=== PATIENT | male | born 1990 | race Caucasian/White ===

== ENCOUNTER 2018-09-12 20:21 | Emergency (ER) | payer SELFPAY ==
[2018-09-12 20:30] VITALS: BP 131/85
--- NOTE | 2018-09-12 21:11 | ED ---
Shortness of Breath - HPI Summary HPI Summary: 28 yo WM p/w left chest wall pain after stretching his muscles few days ago, but feels more of the pain when coughing, smokes 3-4 cigarettes per day. Gets SOB when walking 20 yards, denies trauma to chest - History of Current Complaint Chief Complaint: UCUpperExtremity Time Seen by Provider: 09/12/18 21:00 Hx Obtained From: Patient Onset/Duration: Sudden Onset, Still Present Current Severity: Moderate Aggravating Factors: Nothing Alleviating Factors: Nothing Associated Signs & Symptoms: Cough (Productive) - Allergy/Home Medications Allergies/Adverse Reactions: Allergies Allergy/AdvReac Type Severity Reaction Status Date / Time No Known Allergies Allergy Verified 09/12/18 20:30 Home Medications: Home Medications NK [No Home Medications Reported] 09/12/18 [History Confirmed 09/12/18] PMH/Surg Hx/FS Hx/Imm Hx Previously Healthy: No - pt is a smoker Infectious Disease History: No Infectious Disease History: Denies: Traveled Outside the [place] in Last 30 Days - Social History Alcohol Use: Rare Substance Use Type: Reports: None Smoking Status (MU): Current Every Day Smoker Type: Cigarettes Amount Used/How Often: 4-5 CIG/DAY Review of Systems Negative: Fever, Chills Eyes: Negative ENT: Negative Cardiovascular: Negative Positive: Shortness Of Breath, Cough Gastrointestinal: Negative Genitourinary: Negative Musculoskeletal: Negative Skin: Negative Neurological: Negative Psychological: Normal All Other Systems Reviewed And Are Negative: Yes Physical Exam - Summary Physical Exam Summary: Vital Signs Reviewed: Yes Eye Exam: Normal Eyes: Positive: Conjunctiva Clear ENT: Positive: Normal ENT inspection Neck: Positive: Supple Respiratory Exam: Normal Respiratory: Positive: decreased BS on left, NEG wheezing or rhonchi Cardiovascular Exam: Normal Cardiovascular: Positive: RRR Abdomen Description: Positive: Nontender Musculoskeletal Exam: Normal Neurological Exam: Normal Psychological Exam: Normal Skin Exam: Normal Vital Signs On Initial Exam: Initial Vitals Temp Pulse Resp BP Pulse Ox 37.2 C 98 16 131/85 98 09/12/18 20:26 09/12/18 20:26 09/12/18 20:26 09/12/18 20:26 09/12/18 20:26 Diagnostics - Vital Signs Vital Signs Temp Pulse Resp BP Pulse Ox 09/12/18 20:26 37.2 C 98 16 131/85 98 - Laboratory Lab Statement: Any lab studies that have been ordered have been reviewed, and results considered in the medical decision making process. Course/Dx - Course Assessment/Plan: CXR- PTX of left lung, appears to be spontaneous aspt has no risk factors for traumatic PTX, not marfanoid, no h/o emphysema or blebs evident on XR though he is a smoker. VSS stable, O2 sat 98% on RA, pt ambulates w/o becoming SOB. Advised to go to ED via ambulance but declined, signed AMA form as pt wanted to drive himself there as he has NO insurance. ER informed, spoke to Emmy the ER PA and informed of pt's arrival - Diagnoses Provider Diagnoses: SOB (shortness of breath), Closed pneumothorax Discharge - Sign-Out/Discharge Documenting (check all that apply): Patient Departure All imaging exams completed and their final reports reviewed: Yes - Discharge Plan Condition: Stable Disposition: TRANS HIGHER LVL OF CARE FAC Patient Education Materials: Spontaneous Pneumothorax (ED) Additional Instructions: Go to ER [facility]. Spoke to Emmy russell PA in ED, they are aware you are coming for collapsed left lung - Billing Disposition and Condition Condition: STABLE Disposition: Trans Higher Lvl of Care Fac
== END 2018-09-12 22:00 | disposition short-term general hospital (02) ==
LOC: UCEAST 20:21
DX: J93.83 Other pneumothorax (principal); R06.02 Shortness of breath; F17.210 Nicotine dependence, cigarettes, uncomplicated
CPT/HCPCS: 71046; 99202; G0463

== ENCOUNTER 2018-09-12 22:11 | Emergency (ER) | payer SELFPAY ==
--- NOTE | 2018-09-12 23:08 | ED ---
Respiratory - HPI Summary HPI Summary: This patient is a 28 year old M presenting to ED with a chief complaint of SOB since 09/03/18. Patient woke up on 09/03/18 normally and stretched to loosen his back. He had a sharp pain in the left back side and felt like he could not breathe. However, he pushed it off until today. Patient was seen at and sent here for a collapsed lung. He denies any history of asthma or other lung problems. The patient rates the pain 0/10 in severity. Symptoms aggravated by nothing. Symptoms alleviated by nothing. 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 - History of Current Complaint Chief Complaint: EDShortnessOfBreath Stated Complaint: COLLAPSE LUNG PER PT Hx Obtained From: Patient, Medical Records Onset/Duration: Sudden Onset, Lasting Weeks - Since 09/03/18, Still Present Initial Severity: Mild Current Severity: Mild Pain Intensity: 0 Sputum Amount: None Aggravating Factor(s): Nothing Alleviating Factor(s): Nothing Associated Signs and Symptoms: SOB - Allergy/Home Medications Allergies/Adverse Reactions: Allergies Allergy/AdvReac Type Severity Reaction Status Date / Time No Known Allergies Allergy Verified 09/12/18 20:30 PMH/Surg Hx/FS Hx/Imm Hx Respiratory History: Denies: Hx Asthma Musculoskeletal History: Reports: Hx Arthritis Infectious Disease History: No Infectious Disease History: Denies: Traveled Outside the [place] in Last 30 Days - Family History Known Family History: Positive: Other - Cancer - Social History Alcohol Use: Rare Hx Substance Use: No Substance Use Type: Reports: None Smoking Status (MU): Current Every Day Smoker Type: Cigarettes Amount Used/How Often: 4-5 CIG/DAY Review of Systems Positive: Shortness Of Breath Musculoskeletal: Other - Back pain on left side All Other Systems Reviewed And Are Negative: Yes Physical Exam - Summary Physical Exam Summary: Appearance: Well-appearing, Well-nourished, lying in bed comfortable, no overt respiratory distress Skin: Warm, dry, no obvious rash Eyes: sclera anicteric, no conjunctival pallor ENT: trachea is midline Neck: deferred Respiratory: some hyper-resonance to percussion on the left, markedly diminished breath sounds on the left Cardiovascular: Appears well perfused, pulses are nml Abdomen: deferred Musculoskeletal: Moving all 4 extremities without obvious discomfort Neurological: Awake and alert, mentation is normal, speech is fluent and appropriate Psychiatric: affect is normal, does not appear anxious or depressed Triage Information Reviewed: Yes Vital Signs On Initial Exam: Initial Vitals Temp Pulse Resp BP Pulse Ox 97.3 F 90 20 122/96 99 09/12/18 22:13 09/12/18 22:13 09/12/18 22:13 09/12/18 22:13 09/12/18 22:13 Vital Signs Reviewed: Yes Procedures - Chest Tube Left Upper Anterior Chest Tube Location: forth interspace - Left anterior Chest Tube Procedure: betadine prep, sterile drapes applied, sterile dressing applied Anesthesia: 1% Lidocaine w/ Epi - Used 2% Lidocaine w/ Epi (not an option to click) Valadez of Air Bucks: Yes Number of Attempts: 1 Time of Successful Intubation: 00:25 Tube Drainage: see nurses notes Tube Sutured to Skin: Yes Post Procedure CXR?: Yes Diagnostics - Vital Signs Vital Signs Temp Pulse Resp BP Pulse Ox 09/12/18 22:13 97.3 F 90 20 122/96 99 - Laboratory Lab Statement: Any lab studies that have been ordered have been reviewed, and results considered in the medical decision making process. - Radiology CXR Radiology Interpretation Completed By: ED Physician Summary of Radiographic Findings: successful inflation of left lung following chest tube insertion, pending official radiology report. CXR 2 Radiology Interpretation Completed By: ED Physician Summary of Radiographic Findings: Lung remains inflated, pending official radiology report. Re-Evaluation - Re-Evaluation First Eval Re-Evaluation Time: 15:04 Change: Improved Comment: Discuss results with patient. Patient reports feeling better after chest tube insertion. Patient will be discharged home with dx of PTX. Patient understands and agrees with this plan. Disposition - Course Course Of Treatment: This patient is a 28 year old M presenting to ED with a chief complaint of SOB since 09/03/18. He was sent here from after a dx of PTX. Discussed patient case with Dr. Conteh, surgeon, who stated the patient can have a Heimlich valve placed in the ED. Patient should be watched following chest tube insertion and can be discharged home if there are no complications. Patient will need to return tomorrow for a follow-up XR. Patient will then follow-up with surgery on Saturday for another XR. I placed a chest tube in the patient following standard procedure. A valadez of air was heard upon tube placement. There were no complications during the procedure, and patient tolerated the procedure well. Post-procedure CXR revealed successful inflation of left lung following chest tube insertion, pending official radiology report. CXR taken an hour later revealed lung remains inflated, pending official radiology report. Patient will be discharged home with dx of PTX. Patient understands and agrees with this plan. - Diagnoses Provider Diagnoses: Pneumothorax - Physician Notifications Discussed Care Of Patient With: Bon Conteh Time Discussed With Above Provider: 23:29 Instructed by Provider To: Other - Discussed patient case with Dr. Conteh, surgeon, who stated the patient can have a Heimlich valve placed in the ED. Patient should be watched following chest tube insertion and can be discharged home if there are no complications. Patient will need to return tomorrow for a follow-up XR. Patient will then follow-up with surgery on Saturday for another XR. Discharge - Sign-Out/Discharge Documenting (check all that apply): Patient Departure - Discharge Patient Received Moderate/Deep Sedation with Procedure: No - Discharge Plan Condition: Improved Disposition: HOME Patient Education Materials: Spontaneous Pneumothorax (ED) Referrals: Bon Conteh MD [Medical Doctor] - Additional Instructions: The catheter does not need any special care overnight. Please return to the ED sometime in the afternoon Saturday. You will need a repeat chest x ray to make sure everything is still good. Assuming that looks good, contact Dr. Conteh's office on Saturday. Explain what happened and that you have a chest catheter that needs to be checked on. They will get you in to have the surgeon check you over and possibly remove the tube then. You will have some soreness around the catheter insertion site, but it should be manageable with tylenol or motrin. You can continue your normal activities, but avoid strenuous exercise. - Billing Disposition and Condition Condition: IMPROVED Disposition: Home - Attestation Statements Document Initiated by Joyce: Yes Documenting Scribe: Johnny Tomas Provider For Whom Joyce is Documenting (Include Credential): Dillon Christensen MD Scribe Attestation: Johnny Su, scribed for Dillon Christensen MD on 09/14/18 at 0423. Scribe Documentation Reviewed: Yes Provider Attestation: The documentation as recorded by the Johnny arteaga accurately reflects the service I personally performed and the decisions made by me, Dillon Christensen MD Status of Scribe Document: Viewed
[2018-09-12] MEDS ORDERED: Lidocaine 2% EPI 1:200000 MPF* 10 ML VIAL INJ ONE (23:54)
[2018-09-13] MEDS ORDERED: Lidocaine 2% w/ EPI 1:200,000* 20 ML VIAL INJ ONE (00:10)
[2018-09-13] MEDS ORDERED: Acetaminophen TAB* 325 MG PO ONE (03:06)
[2018-09-13 03:17] VITALS: BP 130/84
== END 2018-09-13 03:16 | disposition home or self-care (01) ==
LOC: ED 22:11
DX: J93.9 Pneumothorax, unspecified (principal)
CPT/HCPCS: 32551; 71045; 99283; A9270-GY